=== PATIENT | female | born 1955 | race Caucasian/White ===

== ENCOUNTER → 2016-11-16 | Outpatient (CLI) | payer MEDICAID ==
[2016-11-16 08:30] LABS: HEMOGLOBIN 14.4 g/dL (12.2-16.2); LYMPH # 2.4 K/mm3 (0.7-4.5); LYMPH % 31.5 % (10-50.0)
[2016-11-16 09:43] LABS: BUN 22 mg/dL (7-18)
[2016-11-16 09:50] LABS: GFR (ESTIMATED) 63 ML/MIN (59-)
--- NOTE | 2016-11-16 11:34 | RADIOLOGY REPORT PS360 ---
US ABD(COMPLETE-MULTI ORGANS HISTORY: RUQ PAIN, VOMITING COMPARISON: None FINDINGS: PANCREAS:Unremarkable. No obvious mass or abnormal fluid collection. No ductal dilatation LIVER:No focal liver lesions demonstrated. Homogeneous echogenicity. No intrahepatic biliary ductal dilatation evident. Increased echogenicity of the liver consistent with hepatic steatosis RIGHT KIDNEY:Unremarkable. Normal size and echogenicity. No hydronephrosis LEFT KIDNEY:Unremarkable. No hydronephrosis. Normal size and echogenicity. GALLBLADDER:No gallstones, gallbladder wall thickening, pericholecystic fluid, or biliary dilatation. AORTA:No evidence of aneurysmal dilatation. SPLEEN:Unremarkable. Normal size and echogenicity ASCITES:None demonstrated. IMPRESSION: 1. Fatty liver. 2. Otherwise negative abdominal ultrasound
== END ==
LOC: LAB 07:31 → RAD 07:31
PROVIDERS: Family Medicine
DX: R10.11 Right upper quadrant pain (principal); R11.10 Vomiting, unspecified